=== PATIENT | female | born 1975 | race Caucasian/White ===

== ENCOUNTER 2020-07-06 15:53 | Emergency (ER) | payer SELFPAY ==
--- NOTE | 2020-07-06 17:03 | EDM.PDOC ---
ED HPI GENERAL MEDICAL PROBLEM - General Chief Complaint: Genitourinary Problem Stated Complaint: GENITOURINARY PROBLEM Time Seen by Provider: 07/06/20 16:23 Source of Information: Reports: Patient, RN Notes Reviewed History Limitations: Reports: No Limitations - History of Present Illness INITIAL COMMENTS - FREE TEXT/NARRATIVE: Patient is a 45-year-old female presenting to the emergency department with complaints of a 5-day history of a whitish vaginal discharge with a fishy odor. Denies any itching or burning associated with this. She also has some right- sided low back pain, however this has been going on for long before the symptoms began. Denies any dysuria. She has had a total hysterectomy in the past. She reports that she has been douching with hydrogen peroxide. Denies any fever, chills, nausea, vomiting, or diarrhea. Treatments INDUSTRIAL RELATIONS REPRESENTATIVE: Reports: Other (see below) Other Treatments INDUSTRIAL RELATIONS REPRESENTATIVE: hydrogen peroxide douche - Related Data Allergies Allergy/AdvReac Type Severity Reaction Status Date / Time No Known Allergies Allergy Verified 07/06/20 16:22 Home Meds: Home Meds metroNIDAZOLE [Flagyl] 500 mg PO Q12H 7 Days #14 tab 07/06/20 [Rx] Past Medical History Cardiovascular History: Reports: Afib [employer] History: Reports: Musculoskeletal History: Reports: Fracture - Infectious Disease History Infectious Disease History: Reports: Chicken Pox, Influenza - Past Surgical History GI Surgical History: Reports: Cholecystectomy Female Surgical History: Reports: Hysterectomy, Tubal Ligation Social & Family History - Tobacco Use Tobacco Use Status *Q: Current Every Day Tobacco User Years of Tobacco use: 33 Packs/Tins Daily: 1 - Caffeine Use Caffeine Use: Reports: Energy Drinks - Recreational Drug Use Recreational Drug Use: No ED ROS GENERAL - Review of Systems Review Of Systems: See Below Constitutional: Reports: No Symptoms HEENT: Reports: No Symptoms Respiratory: Reports: No Symptoms Cardiovascular: Reports: No Symptoms Endocrine: Reports: No Symptoms GI/Abdominal: Reports: No Symptoms : Reports: Discharge (Whitish. "Fishy "odor). Denies: Dysuria, Frequency, Hematuria, Pain Musculoskeletal: Reports: Back Pain (Right low) Skin: Reports: No Symptoms Neurological: Reports: No Symptoms Psychiatric: Reports: No Symptoms Hematologic/Lymphatic: Reports: No Symptoms Immunologic: Reports: No Symptoms ED EXAM, RENAL/ - Physical Exam Exam: See Below General Appearance: Alert, WD/WN, No Apparent Distress Respiratory/Chest: No Respiratory Distress, Lungs Clear, Normal Breath Sounds, No Accessory Muscle Use, Chest Non-Tender Cardiovascular: Normal Peripheral Pulses, Regular Rate, Rhythm, No Edema, No Gallop, No JVD, No Murmur, No Rub (Female) Exam: Normal External Exam, Vaginal Discharge (white). No: Vaginal Bleeding, Vaginal Lesions, Vaginal Tears Back Exam: Normal Inspection, Full Range of Motion. No: CVA Tenderness (L), CVA Tenderness (R) Neurological: Alert, Oriented, CN II-XII Intact, Normal Cognition, Normal Gait, Normal Reflexes, No Motor/Sensory Deficits Psychiatric: Normal Affect, Normal Mood Skin Exam: Warm, Dry, Intact, Normal Color, No Rash Course - Vital Signs Last Recorded V/S: Last Vital Signs Temp 97.1 F 07/06/20 16:18 Pulse 115 H 07/06/20 16:18 Resp 14 07/06/20 16:18 BP 111/84 07/06/20 16:18 Pulse Ox 98 07/06/20 16:18 - Orders/Labs/Meds Labs: Laboratory Tests 07/06/20 07/06/20 Range/Units 16:40 16:40 Urine Color Yellow (Yellow) Urine Appearance Slt cloudy H (Clear) Urine pH 6.0 (5.0-8.0) Ur Specific [place] > or = 1.030 (1.005-1.030) Urine Protein Trace H (Negative) Urine Glucose (UA) Negative (Negative) Urine Ketones Negative (Negative) Urine Occult Blood 1+ H (Negative) Urine Nitrite Negative (Negative) Urine Bilirubin Negative (Negative) Urine Urobilinogen 0.2 (0.2-1.0) Ur Leukocyte Esterase Negative (Negative) Urine RBC 0-5 (0-5) /hpf Urine WBC 0-5 (0-5) /hpf Ur Squamous Epith Cells 20-30 H (0-5) /hpf Urine Bacteria Few (FEW) /hpf Urine Mucus Moderate H (FEW) /hpf C trachomatis DNA (PCR) Not detected N gonorrhoeae DNA (PCR) Not detected - Re-Assessments/Exams Free Text/Narrative Re-Assessment/Exam: Patient is a 45-year-old female presenting to the emergency department with complaints of 5-day history of a whitish vaginal discharge with a fishy odor. States she does have a history of BV and thinks that is what she has going on now. Reports she has been douching with hydrogen peroxide. On exam, she does have a whitish vaginal discharge. There was no noticeable odor. I have ordered a wet prep, GC chlamydia, and urinalysis. 07/06/20 17:30 Wet prep was negative for yeast and trichomonas but did show moderate clue cells. GC chlamydia is pending and I will notify her of the results when they are available. I will not make her wait. I will send a prescription for Flagyl for treatment of BV to [facility]. Urinalysis showed no signs of infection. Discussed that her back pain is likely musculoskeletal in nature. Discharge instructions as documented. 07/06/20 20:08 GC chlamydia was negative. Attempted to contact the patient to update, however there was no answer and no voicemail has been set up on the line. Departure - Departure Time of Disposition: 17:30 Disposition: Home, Self-Care 01 Condition: Good Clinical Impression: Bacterial vaginosis - Discharge Information *PRESCRIPTION DRUG MONITORING PROGRAM REVIEWED*: No *COPY OF PRESCRIPTION DRUG MONITORING REPORT IN PATIENT ISABELA: No Prescriptions: metroNIDAZOLE [Flagyl] 500 mg PO Q12H 7 Days #14 tab Instructions: Bacterial Vaginosis Referrals: PCP,Not In Area [Primary Care Provider] - Forms: ED Department Discharge Additional Instructions: You were seen in the emergency department today for evaluation of a 5-day history of white vaginal discharge. A wet prep was completed and does show that she had bacterial vaginosis. You have also been checked for gonorrhea and chlamydia, however these results take a couple hours to process. We will notify you of them when they are available. Prescription for Flagyl has been sent to [facility]. Take this medication as prescribed. Return to ER as needed. Sepsis Event Note (ED) - Evaluation Sepsis Screening Result: No Definite Risk - Focused Exam Vital Signs: Vital Signs Temp Pulse Resp BP Pulse Ox 07/06/20 16:18 97.1 F 115 H 14 111/84 98
[2020-07-06 19:14] LABS: C. TRACHOMATIS BY PCR NOT DETECTED; N. GONORRHOEAE BY PCR NOT DETECTED
== END 2020-07-06 17:50 | disposition home or self-care (01) ==
LOC: JD.ED 15:53
DX: N76.0 Acute vaginitis (principal); B96.89 Other specified bacterial agents as the cause of diseases classified elsewhere; Z90.710 Acquired absence of both cervix and uterus; Z72.0 Tobacco use
CPT/HCPCS: 81001; 87070; 87205; 87210; 87491; 87591; 87808; 99283

== ENCOUNTER 2021-11-01 19:54 | Emergency (ER) | payer SELFPAY ==
[2021-11-01] MEDS ORDERED: Sodium Chloride 0.9% 10 ML Syringe FLUSH PRN ×2 (20:19→20:50)
[2021-11-01] MEDS ORDERED: HYDROmorphone 1 MG/ML Syringe IVPUSH ONE (20:48)
[2021-11-01] MEDS ORDERED: LORazepam 2 MG/ML SDV IVPUSH ONE (20:49)
[2021-11-01] MEDS ORDERED: Iopamidol 755 Mg/ML 100 ML Bottle IVPUSH ONE (20:50)
[2021-11-01] MEDS ORDERED: Sodium Chloride 0.9% 100 ML IV SCH (21:00)
== END 2021-11-01 23:10 | disposition home or self-care (01) ==
LOC: JD.ED 19:54
DX: R07.89 Other chest pain (principal); Z90.49 Acquired absence of other specified parts of digestive tract; Z90.710 Acquired absence of both cervix and uterus
CPT/HCPCS: 36415; 71275; 80053; 84484; 85025; 85379; 93005; 96374; 96375; 99285; J1170; J2060; J3490; Q9967; 93010; 99284

== ENCOUNTER 2022-05-26 18:05 | Emergency (ER) | payer SELFPAY | END 2022-05-26 22:24 | disposition home or self-care (01) | LOC: JD.ED 18:05 | DX: H53.2 Diplopia (principal); G35 Multiple sclerosis; W10.8XXA Fall (on) (from) other stairs and steps, initial encounter | CPT/HCPCS: 70450; 70450-26; 72125; 72125-26; 99283; 99285 ==